=== PATIENT | male | born 1995 | race Caucasian/White ===

== ENCOUNTER 2018-02-05 09:29 | Emergency (ER) | payer SELFPAY ==
[2018-02-05 09:37] VITALS: BP 117/65
--- NOTE | 2018-02-05 09:50 | UC ---
Respiratory Complaint HPI - HPI Summary HPI Summary: In room from patient: Healthy 22-year-old complains of two-week history of intense sore throat, coughing and congestion. The cough continues. He denies fever. The throat discomfort is less today than it was previously. He has had 2 previous episodes of strep throat. MD: YESSI, afebrile Nurse: pt states he has had a cough for the past 2 weeks. pt has sore throat and ear pain from cough. pt has also has maguire and laryngitis from coughing. - History of Current Complaint Chief Complaint: UCRespiratory Stated Complaint: COUGH Time Seen by Provider: 02/05/18 09:34 Pain Intensity: 8 - Allergies/Home Medications Allergies/Adverse Reactions: Allergies Allergy/AdvReac Type Severity Reaction Status Date / Time No Known Allergies Allergy Unverified 02/05/18 09:37 Home Medications: Home Medications D-Methorphan/PE/Acetaminophen [Vicks Dayquil Liquicaps] 1 cap PO 02/05/18 [ History] Dextromethorphan/Benzocaine [Cepacol Sorethroat-Cough Zack] 1 each PO 02/05/18 [ History] PMH/Surg Hx/FS Hx/Imm Hx - Additional Past Medical History Additional PMH: Patient has previously had strep throat. He is not on antihypertensive medications. He has no allergies. He denies asthma or history of pneumonia. Family history: Patient denies family history of cardiovascular disease or hypertension or stroke. Employment: Patient works in [place] and commutes there bi weekly. Previously Healthy: Yes - Surgical History Surgical History: None - Social History Alcohol Use: Occasionally Substance Use Type: None Smoking Status (MU): Never Smoked Tobacco Type: eCigarettes Review of Systems All Other Systems Reviewed And Are Negative: Yes Constitutional: Positive: Negative ENT: Positive: Sore Throat - sore throat now mostly resolved Respiratory: Positive: Cough Cardiovascular: Positive: Negative Gastrointestinal: Positive: Negative Genitourinary: Positive: Negative Psychological: Positive: Negative Is Patient Immunocompromised?: No Physical Exam - Summary Physical Exam Summary: Appearance: The patient is well-appearing, is in no pain or distress, and is well-nourished. Eyes: Conjunctiva are clear. Pupils are equal and reactive to light and accommodation. Extra ocular muscle movement is intact. ENT: The hearing is grossly normal,and the TMs are normal. There is no muffled or hoarse voice. No stridor. No adenopathy. Redness and swelling of right tonsil. No exudate. Neck: The neck is supple and there is no lymphadenopathy. Respiratory: The chest is nontender to palpation and without crepitus. The lungs are clear, there are normal breath sounds, and there is no respiratory distress. No wheezes, rales or rhonchi. Cardiovascular: Heart sounds reveal a regular rate and rhythm. There are no clicks, rubs or murmurs. There are no carotid bruits or thrills. Circulation is grossly intact. Abdomen: The abdomen is soft and nontender. There is no organomegaly. Bowel sounds are present and within normal limits. No point tenderness at McBurneys point. Musculoskeletal: Strength is intact. The patient moves all extremities. x. Neurological: The patient is alert. Motor and sensory are examination grossly intact. Speech is normal. Psychological: The patient displays age appropriate behavior Skin: Negative for rashes. Vital Signs: Initial Vital Signs Temp 100.1 F 02/05/18 09:35 Pulse 89 02/05/18 09:35 Resp 18 02/05/18 09:35 BP 117/65 02/05/18 09:35 Pulse Ox 95 02/05/18 09:35 UC Diagnostic Evaluation - Laboratory O2 Sat by Pulse Oximetry: 95 Respiratory Course/Dx - Course Course Of Treatment: Healthy 22-year-old with 2 week history of upper respiratory symptoms including sore throat. His physical exam would be consistent with resolving strep throat. At this time it is not the patient's chief complaint. I will treat him with amoxicillin for continued throat symptoms. His lung examination is unremarkable. MEDICATIONS REVIEWED. - Differential Dx/Diagnosis Differential Diagnosis/HQI/PQRI: Laryngitis, Lower Resp Infection, Sinusitis Provider Diagnosis: Tonsillitis Discharge - Sign-Out/Discharge Documenting (check all that apply): Patient Departure All imaging exams completed and their final reports reviewed: No Studies - Discharge Plan Condition: Stable Disposition: HOME Prescriptions: Amoxicillin PO (*) [Amoxicillin 875 MG (*)] 875 mg PO BID #20 tab MDD 2 Patient Education Materials: Tonsillitis (ED) Referrals: No Primary Care Phys,NOPCP [Primary Care Provider] - Additional Instructions: WE DISCUSSED: PLEASE SEEK CARE AT THE EMERGENCY DEPARTMENT IF SYMPTOMS WORSEN OR IF NEW SYMPTOMS DEVELOP. FOLLOW UP WITH YOUR PRIMARY CARE PHYSICIAN IF CONDITION CONTINUES BEYOND 3 DAYS WITHOUT IMPROVEMENT. YOUR DIAGNOSIS IS: TONSILLITIS; COUGH YOUR PRESCRIPTION RECOMMENDATION IS: AMOXICILLIN, TWICE A DAY FOR 10 DAYS. OTHER INSTRUCTIONS: LOTS OF TEA AND HONEY; WARM WATER GARGLES; KEEP THROAT MOIST.
== END 2018-02-05 10:13 | disposition home or self-care (01) ==
LOC: UCEAST 09:29
DX: J03.90 Acute tonsillitis, unspecified (principal)
CPT/HCPCS: 99202; G0463

== ENCOUNTER 2019-03-06 14:06 | Emergency (ER) | payer BC ==
[2019-03-06 14:22] VITALS: BP 134/82
--- NOTE | 2019-03-06 14:28 | UC ---
FLU HPI - History of Current Complaint Chief Complaint: UCGeneralIllness Stated Complaint: COUGH,WEAKNESS Time Seen by Provider: 03/06/19 14:27 Pain Intensity: 5 - Allergy/Home Medications Allergies/Adverse Reactions: Allergies Allergy/AdvReac Type Severity Reaction Status Date / Time No Known Allergies Allergy Verified 03/06/19 14:22 Home Medications: Home Medications NK [No Home Medications Reported] 03/06/19 [History Confirmed 03/06/19] PMH/Surg Hx/FS Hx/Imm Hx - Surgical History Surgical History: None - Social History Alcohol Use: Occasionally Substance Use Type: None Smoking Status (MU): Never Smoked Tobacco Type: eCigarettarturo Physical Exam Vital Signs: Initial Vital Signs Temp 98.2 F 03/06/19 14:17 Pulse 90 03/06/19 14:17 Resp 18 03/06/19 14:17 BP 134/82 03/06/19 14:17 Pulse Ox 98 03/06/19 14:17 Discharge ED - Discharge Plan Referrals: No Primary Care Phys,NOPCP [Primary Care Provider] -
[2019-03-06 14:47] LABS: Influenza A Molecular POSITIVE (Negative)
[2019-03-06] MEDS ORDERED: Ibuprofen TAB* 600 MG PO ONE (15:03)
--- NOTE | 2019-03-06 15:14 | UC ---
FLU HPI - HPI Summary HPI Summary: 2 DAYS OF COUGH, CONGESTION, BODY ACHES, EXTREME FATIGUE, SORE THROAT AND CHILLS. NO FEVER THAT HE IS AWARE OF. NO FLU SHOT THIS SEASON. - History of Current Complaint Chief Complaint: UCGeneralIllness Stated Complaint: COUGH,WEAKNESS Time Seen by Provider: 03/06/19 14:27 Hx Obtained From: Patient, Family/Plant Assigner - MOM Onset/Duration: Gradual Onset, Lasting Days, Still Present Severity Currently: Moderate Severity Initially: Moderate Pain Intensity: 5 Pain Scale Used: 0-10 Numeric Associated Signs & Symptoms: Positive: Myalgia, Cough, Sore Throat, Nasal Congestion - Allergy/Home Medications Allergies/Adverse Reactions: Allergies Allergy/AdvReac Type Severity Reaction Status Date / Time No Known Allergies Allergy Verified 03/06/19 14:22 PMH/Surg Hx/FS Hx/Imm Hx Previously Healthy: Yes - Surgical History Surgical History: None - Family History Known Family History: Positive: Non-Contributory - Social History Alcohol Use: Occasionally Substance Use Type: None Smoking Status (MU): Never Smoked Tobacco Type: eCigarettes Review of Systems All Other Systems Reviewed And Are Negative: Yes Constitutional: Positive: Chills, Fatigue ENT: Positive: Sore Throat, Nasal Discharge Respiratory: Positive: Cough Cardiovascular: Positive: Negative Gastrointestinal: Positive: Negative Musculoskeletal: Positive: Myalgia Physical Exam Triage Information Reviewed: Yes Appearance: No Pain Distress, Well-Nourished, Ill-Appearing - FATIGUED Vital Signs: Initial Vital Signs Temp 98.2 F 03/06/19 14:17 Pulse 90 03/06/19 14:17 Resp 18 03/06/19 14:17 BP 134/82 03/06/19 14:17 Pulse Ox 98 03/06/19 14:17 Laboratory Tests 03/06/19 03/06/19 14:40 14:42 Influenza A (Rapid) Positive A Group A Strep Rapid Negative Vital Signs Reviewed: Yes Eyes: Positive: Conjunctiva Clear ENT: Positive: Hearing grossly normal, Pharynx normal, TMs normal Neck: Positive: Supple, Nontender, No Lymphadenopathy Respiratory Exam: Normal Cardiovascular Exam: Normal Abdomen Description: Positive: Soft Musculoskeletal: Positive: No Edema Neurological: Positive: Alert Psychological: Positive: Normal Response To Family, Age Appropriate Behavior Skin: Negative: Rashes Flu Course/Dx - Course Course Of Treatment: STREP NEGATIVE. INFLUENZA A POSITIVE. TAMIFLU TWICE DAILY FOR 5 DAYS. REST, HYDRATE, OTC MEDICATIONS NEEDED FOR FEVER AND DISCOMFORT. FOLLOW-UP IF NOT IMPROVING. - Differential Dx/Diagnosis Provider Diagnosis: Influenza A Discharge ED - Sign-Out/Discharge Documenting (check all that apply): Patient Departure All imaging exams completed and their final reports reviewed: No Studies - Discharge Plan Condition: Stable Disposition: HOME Prescriptions: Oseltamivir CAP* [Tamiflu CAP*] 75 mg PO BID #10 cap Patient Education Materials: Influenza (ED) Referrals: [facility] [Outside] - If Needed Additional Instructions: SWAB POSITIVE FOR INFLUENZA A. TAMIFLU TWICE DAILY FOR 5 DAYS. OTC MEDS NEEDED FOR FEVER, BODY ACHES. STAY WELL HYDRATED AND RESTED. SEEK FOLLOW-UP IF YOU ARE NOT IMPROVING EXPECTED. IBUPROFEN MAX DOSE: 600MG (3 TABS) EVERY 6 HRS OR 800MG (4 TABS) EVERY 8 HRS OR NAPROXEN MAX DOSE: 440MG (2 TABS) EVERY 12 HRS TYLENOL MAX DOSE: 1000MG (2 EXTRA STRENGTH TABS) EVERY 8 HRS OR 650MG (2 REGULAR TABS) EVERY 6 HRS CALL THE NUMBER BELOW FOR ASSISTANCE IN ESTABLISHING WITH A PCP An additional resource available to assist in finding the appropriate physician for your health care needs is [facility] ([facility]). You may contact them by calling [phone]. - Billing Disposition and Condition Condition: STABLE Disposition: Home
== END 2019-03-06 15:15 | disposition home or self-care (01) ==
LOC: UCEAST 14:06
DX: J11.1 Influenza due to unidentified influenza virus with other respiratory manifestations (principal)
CPT/HCPCS: 87651; 99212; A9270-GY; G0463